=== PATIENT | male | born 1970 | race Caucasian/White ===

== ENCOUNTER 2018-12-14 08:57 | Emergency (ER) | payer OTHER ==
[2018-12-14 09:03] VITALS: BP 143/83
--- NOTE | 2018-12-14 09:42 | EDPHY ---
H & P Stated Complaint: r ankle inj slipped on ice Time Seen by Provider: 12/14/18 09:42 HPI/ROS: HPI: This is a 48-year-old male who presents with Chief Complaint: Right ankle injury, slipped on ice Location: Right ankle Quality: Injury Duration: 1 hr prior to arrival Signs and Symptoms: No bleeding, no radiation, no numbness, no weakness, no tingling, no incontinence, + decreased range of motion, + swelling, + pain, no fever Timing: Acute Severity: 06/29 Context: Patient reports that he was running and accidentally slipped on ice causing his right ankle to [place]. He reports that he felt a popping sensation in the right lateral aspect of his ankle and then subsequent sharp, constant, moderate pain. Patient reports that he is unable to bear weight. Within a few seconds the right lateral ankle began to swell substantially. Denies LOC/head injury/neck pain/dizziness/nausea/vomiting/amnesia. Patient is here visiting from [place] and has a flight to return today at 3:00 p.m.. Modifying Factors: No [id number] medications or ice applied. Comment: ROS: A comprehensive 10 system review of systems is otherwise negative aside from elements mentioned in the history of present illness. MEDICAL/SURGICAL/SOCIAL HISTORY: Medical history: Generally healthy. Does not take any regular medications. Surgical history: Denies Social history: Never smoked. Denies drug use. Employed. CONSTITUTIONAL: Moderate distress, adult male, awake and alert HEENT: Atraumatic and normocephalic. NECK: supple, no midline tenderness, flexion 45 degrees, extension 45 degrees, right and left lateral flexion 45 degrees. No meningismus. Cardiovascular: Normal S1/S2, regular rate, regular rhythm, without murmur rub or gallop. PULMONARY/CHEST: Symmetrical and nontender. no crepitus. Clear to auscultation bilaterally. Good air movement. No accessory muscle usage. ABDOMEN: Soft, nondistended, nontender. BACK: No midline tenderness EXTREMITIES: 2/2 pulses, strength 5/5, right Ankle: Moderate lateral malleolus swelling; Plantar flexion to 30, dorsiflexion to 10. Foot inversion to 15 degree. Moderate tenderness/swelling Anterior talofibular ligament. Moderate tenderness/swelling Calcaneofibular ligament, moderate tenderness/swelling posterior talofibular ligament, no tenderness/swelling posterior inferior tibiofibular ligament. Achilles tendon intact. DIP/PIP/MCP flexion/extension intact with good light touch sensation. no deformities, no clubbing, no cyanosis or edema. NEUROLOGICAL: no focal neuro deficits. GCS 15. Light touch sensation intact. SKIN: Warm and dry, no erythema. no rash. Good capillary refill. Source: Patient Exam Limitations: No limitations - Personal History Current Tetanus Diphtheria and Acellular Pertussis (TDAP): Yes - Medical/Surgical History Hx Asthma: No Hx Chronic Respiratory Disease: No Hx Diabetes: No Hx Cardiac Disease: No Hx Renal Disease: No Hx Cirrhosis: No Hx Alcoholism: No Hx HIV/AIDS: No Hx Splenectomy or Spleen Trauma: No Other PMH: denies - Social History Smoking Status: Never smoked Constitutional: Initial Vital Signs Temperature (C) 36.4 C 12/14/18 09:00 Heart Rate 75 12/14/18 09:00 Respiratory Rate 18 12/14/18 09:00 Blood Pressure 143/83 H 12/14/18 09:00 O2 Sat (%) 98 12/14/18 09:00 O2 Delivery Mode Room Air Allergies/Adverse Reactions: No Known Allergies Allergy (Unverified 12/14/18 09:00) Home Medications: Medication Instructions Recorded oxyCODONE/APAP 5/325 [Percocet 1 - 2 tab PO Q4H PRN #20 tab 12/14/18 5/325 (*)] Medical Decision Making - Diagnostics Imaging Results: Imaging Impressions Ankle X-Ray 12/14/18 09:03 Impression: Acute trimalleolar fracture. Relatively well-preserved ankle mortise. Procedures: Procedure: Splint placement. A right short-leg 3 way Ortho Glass splint and crutches were applied by Emergency Room shop technician. After application of the splint I returned and re- examined the patient. The splint was adequately immobilizing the joint and distal to the splint the patient's circulation and sensation was intact. ED Course/Re-evaluation: Ice pack applied and given Percocet x2 Right ankle x-ray ordered and my read shows trimalleolar fracture spiral torus- relatively well preserved ankle mortise. Placed in 3 way short-leg splint; crutches; orthopedic follow-up in [place] X-rays given to patient on [facility] Airline excuse provided along with pain medications No signs of neurovascular compromise/tenting of skin/compartment syndrome/ extremities and joints examined above and below area of concern and are neurovascularly intact. This patient was seen under the supervision of my secondary supervising physician. I evaluated care for this patient with attending. Discussed this patient with Dr. Samuels. Differential Diagnosis: Ankle injury differential diagnosis includes but is not limited to tibia fracture, fibula fracture, metatarsal fracture, LisFranc fracture, achilles tendon rupture, sprain. - Data Points Medications Given: Discontinued Medications Oxycodone/Acetaminophen (Percocet 5/325) 2 tab PO EDNOW ONE Stop: 12/14/18 09:59 Last Admin: 12/14/18 10:11 Dose: Not Given Departure - Departure Disposition: Home, Routine, Self-Care Clinical Impression: Closed trimalleolar fracture of right ankle Qualifiers: Encounter type: initial encounter Qualified Code(s): S82.851A - Displaced trimalleolar fracture of right lower leg, initial encounter for closed fracture Condition: Good Instructions: Ankle Fracture (ED), Crutch Instructions (ED), ORIF of an Ankle Fracture (DC) Additional Instructions: Keep the splint dry and in place until seen by Orthopedics. Use crutches to aid ambulation. Start with toe-touch weight-bearing status. Take Tylenol 650 mg every 4 hours and/or Ibuprofen 600 mg every 8 hours with food as needed for pain. Use Percocet every 6 hours as needed for severe/break through pain. Do not use Tylenol and Percocet concomitantly. Apply ice for 30 minutes at a time; 2-3 times per day for the next 1-2 days. Follow up with Orthopedics in 5-7 days for evaluation and bring x-rays along to the visit. Please note this injury likely requires surgery. Return to the ER immediately if you experience new or worsening pain, discoloration, numbness, tingling, or any other symptoms that concern you. Referrals: Maldonado Quick MD [Medical Doctor] - As per Instructions Stand Alone Forms: Airline Excuse Prescriptions: oxyCODONE/APAP 5/325 [Percocet 5/325 (*)] 1 - 2 tab PO Q4H PRN #20 tab PRN Reason: Pain, Severe
[2018-12-14] MEDS ORDERED: OXYCODONE/APAP 5/325 TAB PO ONE (09:58)
== END 2018-12-14 10:55 | disposition home or self-care (01) ==
PROC: 2W3QX1Z Immobilization of Right Lower Leg using Splint (ICD-10-PCS; principal; 2018-12-14)
DX: S82.851A Displaced trimalleolar fracture of right lower leg, initial encounter for closed fracture (principal); W00.0XXA Fall on same level due to ice and snow, initial encounter; Y93.02 Activity, running